=== PATIENT | male | born 1930 | race Caucasian/White ===

== ENCOUNTER 2016-08-12 09:36 | Emergency (ER) | payer MEDICARE, BC ==
[~2016-08-12] VITALS: Ht 172.7 cm; Wt 99.2 kg
[~2016-08-12 09:36] MED LIST: ASPI-558 PO; DOXA4TAB3 PO; FURO20TA6 PO; LOSA50TA17 PO; METO25TA PO; OMEP-29 PO; POTA10CA32 PO; SIMV80TA62 PO; SUCR1TAB29 PO
[2016-08-12 09:39] VITALS: Ht 172.7 cm; Wt 99.2 kg
--- OUTSIDE RECORDS SUMMARY | 2016-08-12 09:40 | XMS REPORT | Continuity of Care Document ---
Author Author [facility] Organization [facility] Address Unknown Phone Unavailable Support Name Relationship Address Phone DIONY GRISSOM Next Of Kin Unknown Unavailable Insurance Providers Payer Name Policy Number Subscriber Name Relationship [facility] [id number] Katy Grissom W 18 Self Medicare [id number] Katy Grissom W 19 Self Problems No Known Problems or Medical conditions. Family History History Response Recorded Date/Time HX of Orthopedic Surgeries Y bilateral hips replaced 11/28/12 9:12am HX Cerebrovascular Accident N 11/28/12 9:12am Hx Seizures N 11/28/12 9:12am Hx Congestive Heart Failure N 11/28/12 9:12am Hx Heart Attack N 11/28/12 9:12am Hx Hypertension N controlled by meds, but when checked is WNL 11/28/12 9:12am Hx Chronic Obstructive Pulmonary Disease (COPD) N 11/28/12 9:12am Hx Diabetes N 11/28/12 9:12am Hx Cancer N 11/28/12 9:12am Hx MRSA N 11/28/12 9:12am HX of Cardiac Surgeries Y STENT,BYPASS X4 11/28/12 9:12am HX of Throat Surgery Y TONSILS 11/28/12 9:12am Cardiac CAD 11/05/12 11:54am Social History History Response Recorded Date/Time Smoking Status Former smoker 11/28/12 9:12am Hx Alcohol Use N 11/28/12 9:12am Has the pt used tobacco in the last 12 months N 11/05/12 6:25pm Allergies, Adverse Reactions, Alerts Allergen Type Severity Reaction Last Updated Penicillins Adverse Reaction Mild BLISTERING 11/05/12 Medications Medication Dose Units Route Sig Qty Days Ferrous Sulfate (Iron) 1 Tab PO DAILY Losartan Potassium (Cozaar) 50 Mg PO DAILY Furosemide (Lasix) 20 Mg PO DAILY Aspirin (Aspir 81) 81 Mg PO DAILY Doxazosin Mesylate 4 Mg PO HS Omeprazole 20 Mg PO DAILY PRN Metoprolol Tartrate (Lopressor) 25 Mg PO BID Potassium Chloride 10 Meq PO DAILY Sucralfate (Carafate) 1 G PO BID Simvastatin 80 Mg PO HS [HCTZ/lisinopril] 1 Tab PO DAILY Immunizations Name Given Type Hx Influenza Vaccination Y fall 2011 H Hx Pneumococcal Vaccination Y states within the last 5 years H Hx Tetanus, Diptheria, Pertussis UNKNOWN H Response Recorded Date/Time Status not known Unknown Results Test Date Result Interp. Ref. Range Alanine Aminotransferase (ALT/SGPT) November 05, 2012 12:10pm 33 U/L N 21-72 Albumin November 05, 2012 12:10pm 4.2 G/DL N 3.5-5.0 Albumin/Globulin Ratio November 05, 2012 12:10pm 1.5 RATIO N 1.1-2.2 Alkaline Phosphatase November 05, 2012 12:10pm 75 U/L N 38-126 Amylase Level November 05, 2012 12:10pm 99 U/L N 30-110 Anion Gap November 06, 2012 5:10am 11 MEQ/L N 5-15 Aspartate Amino Transf (AST/SGOT) November 05, 2012 12:10pm 33 U/L N 17-59 BUN/Creatinine Ratio November 06, 2012 5:10am 16 RATIO N 6-26 Band Neutrophils # November 05, 2012 12:10pm 1.8 T/MM3 - Band Neutrophils % November 05, 2012 12:10pm 9.0 % H 0-6 Basophils # (Auto) November 06, 2012 5:10am 0.0 T/MM3 N 0-0.2 Basophils (%) (Auto) November 06, 2012 5:10am 0.2 % N 0-2 Blood Urea Nitrogen November 06, 2012 5:10am 18.0 MG/DL N 9-20 Calcium Level November 06, 2012 5:10am 8.1 MG/DL DL 8.4-10.2 Calculated Osmolality November 06, 2012 5:10am 273 MOSM/KG N 261-280 Carbon Dioxide Level November 06, 2012 5:10am 28 MEQ/L N 22-30 Chloride Level November 06, 2012 5:10am 102 MEQ/L N 98-107 Creatinine November 06, 2012 5:10am 1.1 MG/DL DN 0.8-1.5 Eosinophils # (Auto) November 06, 2012 5:10am 0.1 T/MM3 N 0-0.5 Eosinophils (%) (Auto) November 06, 2012 5:10am 0.4 % N 0-4 Globulin November 05, 2012 12:10pm 2.8 G/DL N 2.4-3.6 Glucose Level November 06, 2012 5:10am 96 MG/DL N 75-110 Hematocrit November 06, 2012 5:10am 34.3 % DL 41-53 Hemoglobin November 06, 2012 5:10am 10.9 GM/DL DL 13.5-17.5 Lipase November 05, 2012 12:10pm 65 U/L N 23-300 Lymphocytes # (Auto) November 06, 2012 5:10am 1.3 T/MM3 N 1-4.8 Lymphocytes # (Manual) November 05, 2012 12:10pm 1.2 T/MM3 N 1-4.8 Lymphocytes % (Manual) November 05, 2012 12:10pm 6.0 % L 23-45 Lymphocytes (%) (Auto) November 06, 2012 5:10am 9.7 % L 23-45 Mean Corpuscular Hemoglobin November 06, 2012 5:10am 29.0 UUG N 26-34 Mean Corpuscular Hemoglobin Concent November 06, 2012 5:10am 31.8 GM/DL N 31- 37 Mean Corpuscular Volume November 06, 2012 5:10am 91.2 UM3 N 80-100 Mean Platelet Volume November 06, 2012 5:10am 11.3 UM3 N 9.4-12.4 Monocytes # (Auto) November 06, 2012 5:10am 1.1 T/MM3 H 0-0.8 Monocytes # (Manual) November 05, 2012 12:10pm 1.4 T/MM3 H 0-0.8 Monocytes % (Manual) November 05, 2012 12:10pm 7.0 % N 0-9.0 Monocytes (%) (Auto) November 06, 2012 5:10am 8.2 % N 0-9.0 Neutrophils # (Auto) November 06, 2012 5:10am 10.6 T/MM3 H 1.8-7.7 Neutrophils # (Manual) November 05, 2012 12:10pm 15.4 T/MM3 H 1.8-7.7 Neutrophils % (Manual) November 05, 2012 12:10pm 78.0 % H 33-66 Neutrophils (%) (Auto) November 06, 2012 5:10am 81.3 % H 33-66 Platelet Count November 06, 2012 5:10am 140 T/MM3 N 130-400 Potassium Level November 06, 2012 5:10am 3.8 MEQ/L N 3.6-5 RDW Standard Deviation November 06, 2012 5:10am 42.3 FL N 36.9-50.2 Red Blood Count November 06, 2012 5:10am 3.76 M/MM3 L 4.50-5.90 Sodium Level November 06, 2012 5:10am 141 MEQ/L N 134-144 Total Bilirubin November 05, 2012 12:10pm 1.40 MG/DL H 0.20-1.30 Total Protein November 05, 2012 12:10pm 7.0 G/DL N 6.3-8.2 Troponin I November 05, 2012 12:10pm < 0.012 ng/ml 0-0.12 Urine Amorphous Urates November 05, 2012 6:45pm Few - Urine Bacteria November 05, 2012 6:45pm None seen - Urine Bilirubin November 05, 2012 6:45pm Negative - Urine Blood November 05, 2012 6:45pm 2+ H - Urine Collection Type November 05, 2012 6:45pm Cleancatch-midstream - Urine Color November 05, 2012 6:45pm Yellow - Urine Glucose (UA) November 05, 2012 6:45pm Trace H - Urine Ketones November 05, 2012 6:45pm Negative - Urine Leukocyte Esterase November 05, 2012 6:45pm Negative - Urine Nitrite November 05, 2012 6:45pm Negative - Urine Protein November 05, 2012 6:45pm Trace H - Urine RBC November 05, 2012 6:45pm None seen /HPF - Urine Specific [place] November 05, 2012 6:45pm 1.015 - Urine Turbidity November 05, 2012 6:45pm Clear - Urine Urobilinogen November 05, 2012 6:45pm Normal EU/DL - Urine WBC November 05, 2012 6:45pm 1-3 /HPF - Urine Waxy Casts November 05, 2012 6:45pm 0-1 /LPF - Urine pH November 05, 2012 6:45pm 5.0 - White Blood Count November 06, 2012 5:10am 13.1 T/MM3 H 4.5-11.0 Glomerular Filtration Rate Calc November 06, 2012 5:10am 64 - Immature Granulocyte # (Auto) November 06, 2012 5:10am 0.02 T/MM3 N 0.00-0.03 Immature Granulocyte % (Auto) November 06, 2012 5:10am 0.2 % N 0.0-0.5 Venous Blood Lactate November 05, 2012 1:00pm 1.1 MMOL/L N 0.6-2.2 Procalcitonin November 05, 2012 1:00pm 3.69 NG/ML PH - Name: KATY GRISSOM Unit #: [id number]
: 1930 Sex: M
Loc / Svc: MED Admit Date: 11/05/12
Signed Discharge Date: 11/06/12
DISCHARGE SUMMARY Report #: [id number]

BUSTOSCHANTE 11/06/12 1357:
General
Date< br>Date
DATE: 11/06/12
TIME: 13:45
Attending Physician
Myranda Richards DO
Admitting Physician
Myranda Richards DO
Consulting Physician
Admitting Diagnosis
1. Sepsis
2. Leukocytosis with bandemia
3. Nausea/ vomiting
4. CAD
5. Peripheral edema
6. General malaise
7. Obesity BMI 30.5
Discharge Diagnosis
1. Nausea/vomiting probable acute gastroenteritis
2. Leukocytosis -improving
3. CAD
4. Peripheral edema- stable
5. Generalized weakness-resolved
6. Obesity BMI 31.4
Laboratory< br>Laboratory
Laboratory Tests
Test 11/05/12 11/06/12
18:45 05:10

Urine Collection Type Cleancatch-midstream

Urine Color Yellow
< br>Urine Turbidity Clear

Urine pH 5.0

Urine Specific [place] 1.015

Urine Protein Trace

Urine Glucose (UA) Trace

Urine Ketones Negative

Urine Blood 2+

Urine Nitrite Negative

Urine Bilirubin Negative

Urine Urobilinogen Normal EU/DL

Urine Leukocyte Esterase Negative

Urine RBC None seen /HPF

Urine WBC 1-3 /HPF

Urine Amorphous Urates Few

Urine Bacteria None seen

Urine Waxy Casts 0-1 / LPF

White Blood Count 13.1 T/MM3

Red Blood Count 3.76 M/MM3< br>
Hemoglobin 10.9 GM/DL

Hematocrit 34.3 %

Mean Corpuscular Volume 91.2 UM3

Mean Corpuscular Hemoglobin 29.0 UUG
< br>Mean Corpuscular Hemoglobin 31.8 GM/DL
Concent

RDW Standard Deviation 42.3 FL

Platelet Count 140 T/MM3

Mean Platelet Volume 11.3 UM3

Immature Granulocyte % (Auto) 0.2 %

Neutrophils (%) (Auto) 81.3 %

Lymphocytes (%) (Auto) 9.7 %

Monocytes (%) (Auto) 8.2 %

Eosinophils (%) (Auto) 0.4 %

Basophils (%) (Auto) 0.2 %

Immature Granulocyte # (Auto) 0.02 T/MM3

Neutrophils # (Auto) 10.6 T/MM3

Lymphocytes # (Auto) 1.3 T/MM3< br>
Monocytes # (Auto) 1.1 T/MM3

Eosinophils # (Auto) 0.1 T/MM3

Basophils # (Auto) 0.0 T/MM3

Sodium Level 141 MEQ/L

Potassium Level 3.8 MEQ/L

Chloride Level 102 MEQ/L

Carbon Dioxide Level 28 MEQ/L

Anion Gap 11 MEQ/L

Blood Urea Nitrogen 18.0 MG/DL

Creatinine 1.1 MG/DL

Glomerular Filtration Rate 64
Calc

BUN/Creatinine Ratio 16 RATIO

Glucose Level 96 MG/DL

Calculated Osmolality 273 MOSM/KG

Calcium Level 8.1 MG/ DL
Microbiology
Microbiology
Date/Time Procedure Status
Source Growth

11/05/12 13:00 Blood Culture - Preliminary Resulted
Blood NO GROWTH AFTER 24 HOURS

11/05/12 13:00 Blood Culture - Preliminary Resulted
Blood NO GROWTH AFTER 24 HOURS
Radiology
CXR neg.
History of Present Illness
Mr. Grissom is a very pleasant 82 year old gentleman who developed nausea/vomiting 12-14 hours ago
and just felt weak and unwell. He has been suffering from a sore throat he relays and a dry cough.
Prescribed him Lasix, which he did not take today. Denies chest pain, denies soa. Denies
fevers. Was seen in ER and found to have WBC 19.7 with left shift. Procalcitonin 3.69. Urinalysis
not obtained in ER. Chest xray negative for acute findings. Vitals grossly benign with sats 92% on
room air. Complains of feeling overall weak and is tearful during exam[place]
. He was admitted as an inpatient to the hospitalist service due to sepsis.
Hospital Course
Mr. Grissom was admitted initially with an elevated precalcitonin, leukocytosis and profound
weakness. He was not able to provide a urine specimen in the ER and was admitted an inpatient for
sepsis. Started on IV Rocephin and fairly aggressive IV hydration with ns@80cc/hr paying attention
to avoid oversaturation with peripheral edema noted. Patient has been on Lasix recently by his
report as well. After admission and several hours of IV therapy, patient was more conversational
and relayed going out to eat [place] the day prior to developing the symptoms of nausea/vomiting.
He feels that food likely caused his symptoms and subsequent dehydration. IV Protonix was used to
facilitate GI protection. SCDS used for dvt prophylaxis. On 11/06 during morning rounds, Mr. Grissom
verbalizes feeling signficantly better and wanting to go home. Ambulated in halls with nurse from
[address], down to IRU and back around. Gait steady. No dizziness. No weakness.
Home Meds
Reported Medications
Furosemide (Lasix) 20 Mg Tablet 20 Mg PO DAILY
11/05/12
Aspirin (Aspir 81) 81 Mg Tablet.dr 81 Mg PO DAILY
11/05/12
Doxazosin Mesylate 4 Mg Tablet 4 Mg PO HS
11/05/12
[HCTZ/lisinopril] No Conflict Check 1 Tab PO DAILY
11/05/12
Omeprazole 20 Mg Capsule.dr 20 Mg PO DAILY PRN< br> 11/05/12
Metoprolol Tartrate (Lopressor) 25 Mg Tablet 25 Mg PO BID
11/05/12
Potassium Chloride 10 Meq Capsule.sa 10 Meq PO DAILY

Sucralfate (Carafate) 1 G Tablet 1 G PO BID
11/05/12
Simvastatin 80 Mg Tablet 80 Mg PO HS
11/05/12
Discharge Disposition
stable
Documentation Requirements
Documenting Diagnosis
BMI Low or High
BMI Low or High
Assoc. dx for low or high BMI Obesity 30-34.9
FRANCA,MYRANDA DO 11/06/12 2347:
Hospital Course
Pt ok for discharge at this time, good clinical gains noted overnight
Home Meds
Reported Medications
Furosemide (Lasix) 20 Mg Tablet 20 Mg PO DAILY
11/05/12
Aspirin (Aspir 81) 81 Mg Tablet.dr 81 Mg PO DAILY
11/05/12
Doxazosin Mesylate 4 Mg Tablet 4 Mg PO HS
11/05/12
[HCTZ/lisinopril] No Conflict Check 1 Tab PO DAILY
11/05/12
Omeprazole 20 Mg Capsule.dr 20 Mg PO DAILY PRN< br> 11/05/12
Metoprolol Tartrate (Lopressor) 25 Mg Tablet 25 Mg PO BID
11/05/12
Potassium Chloride 10 Meq Capsule.sa 10 Meq PO DAILY

Sucralfate (Carafate) 1 G Tablet 1 G PO BID
11/05/12
Simvastatin 80 Mg Tablet 80 Mg PO HS
11/05/12
Discharge Disposition
stable
CHANTE BUSTOS Nov 06, 2012 13:57
MYRANDA RICHARDS DO Nov 06, 2012 23:47 Procedures Procedure Code Date Blood Culture 11/05/12 Encounters Encounter Location Date/Time Departed Emergency Room [facility] 11/28/12 9:06am Discharged Inpatient [facility] 11/05/12 2:45pm
--- OUTSIDE RECORDS SUMMARY | 2016-08-12 09:41 | XMS REPORT | Continuity of Care Document ---
Author Author [facility] Organization [facility] Address Unknown Phone Unavailable Allergies Active Description Code Type Severity Reaction Onset Reported/Identified Relationship to Patient Clinical Status Yes ampicillin NKMA N/A N/A 07/20/2015 Yes No Known Allergies NKMA N/A N/A 07/20/2015 Medications Problems Date Dx Coded Attending Type Code Diagnosis Diagnosed By 07/27/2015 Felix Ziegler MD Reason H57.8 Other specified disorders of eye and adnexa 07/27/2015 Felix Ziegler MD Final S05.01XA Injury of conjunctiva and corneal abrasion without foreign body, right eye, Procedures Results Encounters ACCT No. Visit Date/Time Discharge Status Pt. Type Provider Facility Loc./Unit Complaint [id number] 07/20/2015 16:26:00 2015 19:55:00 DIS Emergency Felix Ziegler MD [facility] ED R EYE REDNESS
--- OUTSIDE RECORDS SUMMARY | 2016-08-12 09:41 | XMS REPORT | Continuity of Care Document ---
Author Author [facility] Organization [facility] Address Unknown Phone Unavailable Support Name Relationship Address Phone AUGUST VIERA DO Caregiver [address] [place] [address] Unavailable SEPTEMBERDOMITILA DO Caregiver [address] [place] [address] Unavailable PRAVEENAJERMANDIONY Next Of Kin [address] [place] [address] Insurance Providers Guarantor Katy Cristina Address [address] [place] [address] Email [email or web address] Payer Blue [employer] Select Plan 65 Policy Number [id number] Subscriber's Name NoreenKaty givens Relationship 18 Self Group Number [id number] Effective Date 96 Payer Medicare Policy Number [id number] Subscriber's Name Katy Cristina Moises Relationship 18 Self Effective Date 93 Advance Directives Directive Response Recorded Date/Time Advanced Directives Type None 11/25/15 4:37pm Chief Complaint and Reason for Visit Chief Complaint Fall Reason for Visit Laceration of head Problems Past Problems Medical Problem Onset Date Laceration of head Unknown Medications Current Home Medications Medication Dose Units Route Directions Days Qty Instructions Start Date Aspirin (Aspir 81) 81 Mg Tablet. 81 Mg Oral Daily 11/05/12 Doxazosin Mesylate 4 Mg Tablet 4 Mg Oral Bedtime 11/05/12 Furosemide (Lasix) 20 Mg Tablet 20 Mg Oral Daily 11/05/12 Losartan Potassium (Cozaar) 50 Mg Tablet 50 Mg Oral Daily Metoprolol Tartrate (Lopressor) 25 Mg Tablet 25 Mg Oral Twice A Day 11/05/12 Omeprazole (Prilosec) 20 Mg Capsule. 20 Mg Oral Daily as needed 11/05/12 Potassium Chloride 10 Meq Capsule.sa 10 Meq Oral Daily 11/05/12 Simvastatin 80 Mg Tablet 80 Mg Oral Bedtime 11/05/12 Sucralfate (Carafate) 1 G Tablet 1 G Oral Twice A Day 11/05/12 Past Home Medications Medication Directions Ordered Status Hctz/Lisinopril , 1 Tab Oral Daily 11/05/12 Discontinued Social History Social History Problem Response Recorded Date/Time Onset Date Status Hx Alcohol Use No 11/25/2015 4:37pm Not Applicable Not Applicable Has the pt used tobacco in the last 12 months No 11/05/2012 6:25pm Not Applicable Not Applicable Query Response Start Date Stop Date Smoking Status Former smoker Hospital Discharge Instructions No hospital discharge instructions. Plan of Care Discharge Date 11/25/15 5:25pm Disposition 01 DISCHARGED HOME, SELF-CARE Condition at Discharge Improved Instructions/Education Provided How to Care for a Laceration After Repair Closed Head Injury Prescriptions See Medication Section Referrals AUGUST VIERA DO Order Date: 3 Days Address: [address] [id number] Note: Additional Instructions/Education You have head a head trauma with a laceration (cut). There are 5 mehdi on the side of your head. Keep the cut clean and covered. You can cover the cut with vaseline or triple antibiotic ointment to minimize scarring. Follow up with your doctor in 7-10 days to remove the mehdi. Care Plan and Goals Physician Care Plan Problem: Head laceration Goal: Follow up with primary care provider Instructions: Take medications and follow care plan as discussed/written Functional Status No functional status results. Allergies, Adverse Reactions, Alerts Allergen Type Severity Reaction Status Last Updated Penicillin Adverse Reaction Mild BLISTERING Active 11/25/15 Immunizations Immunization Event Date Type Not Given Reason Dose Number Lot Number [employer] Technician VIS Given Tdap 11/25/15 Administered 1 [id number] [employer] 06/30/14 Query Response on File Recorded Date/Time Hx Influenza Vaccination Y fall 201111/28/12 9:12am Hx Pneumococcal Vaccination Y states within the last 5 years 11/28/12 9:12am Hx Tetanus, Diptheria, Pertussis UNKNOWN 11/28/12 9:18am Hx Influenza Vaccination Y fall 201111/28/12 9:12am Hx Tetanus, Diptheria, Pertussis UNKNOWN 11/28/12 9:18am Tdap Vaccine Hx 11/25/15 11/25/15 5:20pm Vital Signs Acute Vital Signs Vital Response Date/Time Temperature (Fahrenheit) 97.5 deg F (96.8 - 99.1) 11/25/2015 5:25pm Temperature (Calculated Celsius) 36.96643 degrees C (36.0 - 37.3) 11/25/2015 5:25pm Pulse Rate (adult) 76 bpm (60 - 100) 11/25/2015 5:25pm Respiratory Rate 14 breaths/min (10 - 20) 11/25/2015 5:25pm O2 Sat by Pulse Oximetry 94 % (90 - 100) 11/25/2015 5:25pm Blood Pressure 147/74 mm Hg 11/25/2015 5:25pm Height (Feet) 5 feet 11/25/2015 4:37pm Height (Inches) 7.00 inches 11/25/2015 4:37pm Weight (Kilograms) 99.400 kg 11/25/2015 4:37pm Body Mass Index (BMI) 34.0 11/25/2015 4:37pm Results No known relevant diagnostic tests, laboratory data and/or discharge summary. Procedures No known history of procedures. Encounters Encounter Location Arrival/Admit Date Discharge/Depart Date Attending Provider Departed Emergency Room [facility] 11/25/15 4:32pm 11/25/15 5: 25pm DOMITILA JUSTICE DO Recent Diagnosis
--- OUTSIDE RECORDS SUMMARY | 2016-08-12 09:41 | XMS REPORT | Referral Summary ---
Author Author [facility] Organization [facility] Address Unknown Phone Unavailable Care Team Providers Care Education Faculty Member Name Role Phone Annette Us Primary Care Physician [phone] Encounter Date(s): 07/20/15 - 07/20/15 [facility] [address] [place] [address] [phone] Discharge Diagnosis: Right corneal abrasion Discharge Disposition: 01-Home or Self Care Attending Physician: Felix Ziegler MD Admitting Physician: Felix Ziegler MD Vital Signs Most recent to 1 oldest [Reference Range]: Temperature Oral 36.6 degC [35.8-37.3 degC] (07/20/15 4:38 PM) Peripheral Pulse 73 bpm Rate [60-100 bpm] (07/20/15 6:11 PM) Respiratory Rate 20 br/min [14-20 br/min] (07/20/15 4:38 PM) Systolic Blood 119 mmHg Pressure [90-140 (07/20/15 6:11 PM) mmHg] Diastolic Blood 72 mmHg Pressure [60-90 (07/20/15 6:11 PM) mmHg] SpO2 97 % (07/20/15 6:11 PM) Problem List No Known Problems Allergies, Adverse Reactions, Alerts Substance Reaction Severity Status ampicillin Active Medications erythromycin 0.5% ophthalmic ointment 1 alena, Eye-Both, QID, SUP/Felix Ziegler MD., X 5 days, # 3.5 g, 0 Refill(s) Start Date: 07/20/15 Stop Date: 07/25/15 Status: Ordered Oscar 5 mg-325 mg oral tablet 1 tabs, Oral, q4hr, as needed for pain, not to exceed 8 tablets/day SUP/Felix Ziegler MD., # 8 tabs, 0 Refill(s) Start Date: 3/15/16 Stop Date: 07/23/15 Status: Ordered Results No data available for this section Immunizations No data available for this section Procedures No data available for this section Social History Social History Type Response Smoking Status Former smoker Assessment and Plan No data available for this section
--- OUTSIDE RECORDS SUMMARY | 2016-08-12 09:41 | XMS REPORT | Continuity of Care Document ---
Author Author [facility] Organization [facility] Address Unknown Phone Unavailable Support Name Relationship Address Phone DIONY GRISSOM Next Of Kin Unknown Unavailable Insurance Providers Payer Name Policy Number Subscriber Name Relationship [facility] [id number] Katy Grissom W 18 Self Medicare [id number] Katy Grissom W 19 Self Problems No [...] 6:45pm None seen /HPF - Urine Specific [place] November 05, 2012 6:45pm 1.015 - Urine [...] PH - Name: KATY GRISSOM Unit #: [id number]
: 1930 Sex: M
Loc / Svc: MED Admit Date: 11/05/12
Signed Discharge Date: 11/06/12
DISCHARGE SUMMARY Report #: [id number]

BUSTOSCHANTE 11/06/12 1357:
General
Date< br>Date
DATE: [...] Turbidity Clear

Urine pH 5.0

Urine Specific [place] 1.015

Urine Protein Trace

Urine Glucose (UA) [...] conversational
and relayed going out to eat [place] the day prior to developing the symptoms [...] Encounters Encounter Location Date/Time Departed Emergency Room [facility] 11/28/12 9:06am Discharged Inpatient [facility] 11/05/12 2:45pm
[2016-08-12 10:03] LABS: BLOOD, URINE 3+ (NEGATIVE); LEUKOCYTE ESTERASE ,URINE NEGATIVE (NEGATIVE); NITRITE,URINE NEGATIVE (NEGATIVE); UROBILINOGEN,URINE 0.2 EU/DL (NORMAL)
[2016-08-12 10:04] LABS: COLOR,URINE BROWN (YELLOW)
--- OUTSIDE RECORDS SUMMARY | 2016-08-12 10:09 | XMS REPORT | Continuity of Care Document ---
Author Author [facility] Organization [facility] Address Unknown Phone Unavailable Allergies Active Description [...] Status Pt. Type Provider Facility Loc./Unit Complaint [id number] 07/20/2015 16:26:00 2015 19:55:00 DIS Emergency Felix Ziegler MD [facility] ED R EYE REDNESS
--- OUTSIDE RECORDS SUMMARY | 2016-08-12 10:09 | XMS REPORT | Continuity of Care Document ---
Author Author [facility] Organization [facility] Address Unknown Phone Unavailable Support Name Relationship Address Phone DIONY GRISSOM Next Of Kin Unknown Unavailable Insurance Providers Payer Name Policy Number Subscriber Name Relationship [facility] [id number] Katy Grissom W 18 Self Medicare [id number] Katy Grissom W 19 Self Problems No [...] 6:45pm None seen /HPF - Urine Specific [place] November 05, 2012 6:45pm 1.015 - Urine [...] PH - Name: KATY GRISSOM Unit #: [id number]
: 1930 Sex: M
Loc / Svc: MED Admit Date: 11/05/12
Signed Discharge Date: 11/06/12
DISCHARGE SUMMARY Report #: [id number]

BUSTOSCHANTE 11/06/12 1357:
General
Date< br>Date
DATE: [...] Turbidity Clear

Urine pH 5.0

Urine Specific [place] 1.015

Urine Protein Trace

Urine Glucose (UA) [...] conversational
and relayed going out to eat [place] the day prior to developing the symptoms [...] Encounters Encounter Location Date/Time Departed Emergency Room [facility] 11/28/12 9:06am Discharged Inpatient [facility] 11/05/12 2:45pm
--- OUTSIDE RECORDS SUMMARY | 2016-08-12 10:10 | XMS REPORT | Continuity of Care Document ---
Author Author [facility] Organization [facility] Address Unknown Phone Unavailable Support Name Relationship Address Phone DIONY GRISSOM Next Of Kin Unknown Unavailable Insurance Providers Payer Name Policy Number Subscriber Name Relationship [facility] [id number] Katy Grissom W 19 Self Medicare [id number] Katy Grissom W 19 Self Problems No [...] 6:45pm None seen /HPF - Urine Specific [place] November 05, 2012 6:45pm 1.015 - Urine [...] PH - Name: KATY GRISSOM Unit #: [id number]
: 1930 Sex: M
Loc / Svc: MED Admit Date: 11/05/12
Signed Discharge Date: 11/06/12
DISCHARGE SUMMARY Report #: [id number]

BUSTOSCHANTE 11/06/12 1357:
General
Date< br>Date
DATE: [...] Turbidity Clear

Urine pH 5.0

Urine Specific [place] 1.015

Urine Protein Trace

Urine Glucose (UA) [...] conversational
and relayed going out to eat [place] the day prior to developing the symptoms [...] Encounters Encounter Location Date/Time Departed Emergency Room [facility] 11/28/12 9:06am Discharged Inpatient [facility] 11/05/12 2:45pm
[2016-08-12 10:16] LABS: RBC,URINE TNTC /HPF (0-3); SQUAMOUS EPITHELIAL CELL,UR 0-5
[2016-08-12 10:17] LABS: BACTERIA,URINE NONE SEEN (NEGATIVE); MUCUS,URINE PRESENT
--- NOTE | 2016-08-12 10:35 | ERPDOC ---
Departure Disposition Decision Date: Aug 12, 2016 Disposition Decision Time: 12:12 Disposition: 01 DISCHARGED HOME, SELF-CARE Impression Impression Impression: Primary Impression: Hematuria Severity: Mild Condition: Improved Seen By: Physician only Referrals: AUGUST VIERA DO (Family) 2 Days Patient Instructions: Hematuria (ED) Problems/Meds/Labs Reviewed?: Yes Medications reviewed and manag: Yes Follow up care ordered?: Yes Mental Status: Alert, Oriented Scripts Ciprofloxacin HCl (Ciprofloxacin HCl) 500 Mg Tablet 500 MG PO BID for 10 Days, #20 TAB 0 Refills Prov: KULWANT MENDOZA 08/12/16 HPI - General Medical General Chief Complaint: Male Urogenital Problems Stated Complaint: BLOOD IN URINE Time Seen by Provider: 09:50 Source: patient Exam Limitations: no limitations HPI - General Medical Initial Comments 86-year-old male presents the emergency department with a chief complaint of noting darker urine. Patient states that he believes that there is blood present in the urine. Patient has a history of hematuria in the past. Patient denies any pain or discomfort. Patient noted onset of dark urine 2 days ago. Symptoms have been persistent in nature since onset. Patient denies any anticoagulation. There are no other complaints or associated symptoms. He does not note any exacerbating or remitting factors. No pain or discomfort is currently present. Occurred At: home Onset: Gradual Allergies: Coded Allergies: Penicillins (Verified Allergy, Mild, BLISTERING, 08/12/16) Past History Past Medical History Metabolic: hypercholesterolemia, hypertension Cardiac: CAD Surgical History General: tonsils Cardiac: cardiac bypass, cardiac cath Joint: hip Family History Family History: Negative Vaccines Hx Influenza Vaccination: Yes (fall 2011) Hx Pneumococcal Vaccination: Yes (states within the last 5 years) Social History Smoking Status: Never smoker Substance Use Type: does not use Alcohol Intake: none Review of Systems Constitutional Constitutional: DENIES: chills, fever Eyes General: DENIES: erythema, exudate Lids/Accessories: DENIES: erythema, swelling Vision: DENIES: acuity, blurring ENMT Ears: DENIES: drainage, erythema Hearing: DENIES: hearing loss Balance: DENIES: ataxia, falling to one side Sinuses: DENIES: congestion, pain Nose: DENIES: nosebleeds, pain Mouth/Throat: DENIES: painful swallowing, sore throat Teeth: DENIES: pain Jaw: DENIES: pain Cardiovascular Cardiac: DENIES: chest pain, dyspnea on exertion Rhythm/Rate: DENIES: irregular beat, palpitations Vascular: DENIES: pedal edema, unilateral swelling Pulmonary Respiratory: DENIES: cough, dyspnea, pleuritic chest pain, sputum GI Upper Abdomen: DENIES: nausea, pain, vomiting Lower Abdomen: DENIES: diarrhea, pain General: hematuria, DENIES: dysuria, frequency Musculoskeletal General: DENIES: joint pain, pain, tenderness Integumentary Skin: DENIES: itching, rash Neurological General: DENIES: headache, numbness, weakness Psychiatric Psychiatric: DENIES: depression, emotional instability, suicidal ideation/ attempt Endocrine Endocrine: DENIES: polydipsia, polyphagia Hematologic/Lymphatic Hematologic/Lymphatic: DENIES: frequent nosebleeds, lymphadenopathy Allergic/Immunological Allergic/Immunoligical: DENIES: allergic reactions, hives Physical Exam General General Nourishment: well nourished, well developed, appears stated age, no acute distress, adult General Body Habitus: well groomed Vitals and Pain First Documented Vital Signs Date Time Temp Pulse Resp B/P Pulse Ox O2 Delivery O2 Flow Rate FiO2 08/12/16 09:39 97.6 70 16 138/69 94 Room Air Weight: Kilograms: 99.200 Height (feet): 5 Height (inches): 8.00 Triage Pain Scale: RN VS reviewed by Provider: Yes Normal Exams: Head: Normocephalic w/o trauma Eyes: Pupils are PERRLA w/ EOMI, No scleral icterus, irritation, or foreign bodies noted ENMT: No facial trauma, nasal exudates, pharyngeal erythema, or exudates are noted Dental: No fractured, loose, or missing teeth noted Neck: Full range of motion, without adenopathy, JVD, bruits or thyromegaly Chest/Resp: Clear all [place], with good airflow, and symmetry bilaterally CV: Regular rate and rhythm, without murmur or gallop, Pulses 2+ all extremities, capillary refill, <2 seconds all ext., no pedal edema noted Abdomen: Bowel sounds positive, soft, non-tender, non-distended, no hepatosplenomegaly, masses or bruits noted Lymphatic: No lymphadenopathy, or lymphedema noted Musculoskeletal: No tenderness, or deformity noted, good range of motion, all extremities Integumentary: No rashes, hives, or bruising noted, hair and nails, without abnormality Neurologic: Patient is alert, and oriented, cranial nerves, motor/sensory/ cerebellar, exams w/o gross deficits, to observation Psychiatric: Patient exhibits, appropriate attention, emotion and affect Abdomen (brief) Comments NO CVAT. Differential Diagnoses Considering: Metabolic, Other (hematuria/kidney stone/UTI) Progress Results/Orders Orders Procedure Category Date Status Time Cbc W/Auto LAB 08/12/16 Complete Diff-Reflex Manual Cmp - Comprehensive LAB 08/12/16 Complete Metabolic INR LAB 08/12/16 Complete PTT LAB 08/12/16 Complete UA, LAB 08/12/16 Complete Dip&Micro(Complete) & 09:59 Ct Renal W/O Contrast CT 08/12/16 Taken 10:58 Lab Results Laboratory Tests Test 08/12/16 09:59 08/12/16 10:15 Urine Collection Type Cleancatch-midstream Urine Color Brown Urine Turbidity Slt cldy Urine pH 5.5 Urine Specific [place] 1.015 Urine Protein 1+ Urine Glucose (UA) Negative Urine Ketones Negative Urine Blood 3+ Urine Nitrite Negative Urine Bilirubin Negative Urine Urobilinogen 0.2EU/DL Urine Leukocyte Esterase Negative Urine RBC Tntc/HPF Urine WBC 5-10/HPF Urine Squamous Epithelial Cells 0-5 Urine Bacteria None seen Urine Mucus Present Urine Culture Indicated Cult not indicated White Blood Count 6.3T/MM3 Red Blood Count 4.16M/MM3 Hemoglobin 12.8GM/DL Hematocrit 39.2% Mean Corpuscular Volume 94.2UM3 Mean Corpuscular Hemoglobin 30.8UUG Mean Corpuscular Hemoglobin Concent 32.7GM/DL RDW Standard Deviation 43.4FL Platelet Count 176T/MM3 Mean Platelet Volume 11.1UM3 Immature Granulocyte % (Auto) 0.2% Neutrophils (%) (Auto) 68.1% Lymphocytes (%) (Auto) 21.4% Monocytes (%) (Auto) 6.6% Eosinophils (%) (Auto) 3.5% Basophils (%) (Auto) 0.2% Absolute Immature Granulocyte (auto 0.01T/MM3 Absolute Neutrophils (auto) 4.3T/MM3 Absolute Lymphocytes (auto) 1.3T/MM3 Absolute Monocytes (auto) 0.4T/MM3 Absolute Eosinophils (auto) 0.2T/MM3 Absolute Basophils (auto) 0.0T/MM3 Prothromb Time International Ratio 1.06 Activated Partial Thromboplast Time 28.6SEC Turbidity < 20 Sodium Level 146MEQ/L Potassium Level 4.1MEQ/L Chloride Level 105MEQ/L Carbon Dioxide Level 27MEQ/L Anion Gap 14MEQ/L Blood Urea Nitrogen 30.0MG/DL Creatinine 1.3MG/DL Glomerular Filtration Rate Calc 52 BUN/Creatinine Ratio 23RATIO Glucose Level 129MG/DL Calculated Osmolality 289MOSM/KG Calcium Level 9.5MG/DL Total Bilirubin 0.80MG/DL Icterus Index < 2 Aspartate Amino Transf (AST/SGOT) 33U/L Alanine Aminotransferase (ALT/SGPT) 32U/L Alkaline Phosphatase 64U/L Total Protein 7.0G/DL Albumin 4.1G/DL Globulin 2.9G/DL Albumin/Globulin Ratio 1.4RATIO Chemistry Specimen Hemolysis < 15 Progress Progress Labs / imaging are discussed in detail with the patient and questions are answered. Patient declines offered IV hydration stating that he will hydrate at home orally. Patient was provided with a prescription for Cipro 500 mg by mouth twice a day 10 days is he had a few white blood cells in his urine along with the hematuria. Patient is not anticoagulated. Patient is discharged home in improved condition. He is to follow up as instructed. Patient is to return to the emergency department if his condition worsens or changes in any manner. Patient is in agreement with the current plan of management. Patient is instructed to follow-up with his primary care physician as directed so that the primary care physician can direct him to urology for further evaluation and treatment of the hematuria. Patient verbalizes agreement and understanding of the instructions. I have offered to obtain urology follow up for the patient but the patient would prefer to use the Urologist that his PCP selects. CT CT : CT: Abd/Pelvis no contrast Interpretation: Normal, Faxed Report KULWANT MENDOZA DO Aug 12, 2016 10:35
--- NOTE | 2016-08-12 10:40 | NUR ---
LAB LAB IN ROOM FOR BLOOD DRAW
[2016-08-12 10:47] LABS: BASOPHILS % (AUTO) 0.2 % (0-2); EOSINOPHILS # (AUTO) 0.2 T/MM3 (0-0.5); EOSINOPHILS % (AUTO) 3.5 % (0-4); HCT - HEMATOCRIT 39.2 % (41-53); HGB - HEMOGLOBIN 12.8 GM/DL (13.5-17.5); IMMATURE GRANULOCYTE # (AUTO) 0.01 T/MM3 (0.00-0.03); IMMATURE GRANULOCYTE % (AUTO) 0.2 % (0.0-0.5); LYMPHOCYTES # (AUTO) 1.3 T/MM3 (1-4.8); LYMPHOCYTES % (AUTO) 21.4 % (23-45); MEAN CORPUSCULAR HGB 30.8 UUG (26-34); MEAN CORPUSCULAR HGB CONC(MCHC 32.7 GM/DL (31-37); MEAN CORPUSCULAR VOLUME 94.2 UM3 (80-100); MEAN PLATELET VOLUME 11.1 UM3 (9.4-12.4); MONOCYTES # (AUTO) 0.4 T/MM3 (0-0.8); MONOCYTES % (AUTO) 6.6 % (0-9.0); NEUTROPHILS #(AUTO)-ABSOLUTE 4.3 T/MM3 (1.8-7.7); NEUTROPHILS % (AUTO) 68.1 % (33-66); RED BLOOD COUNT 4.16 M/MM3 (4.50-5.90); WBC - WHITE BLOOD COUNT 6.3 T/MM3 (4.5-11.0)
[2016-08-12 10:53] LABS: INR 1.06 (0.76-1.04); PROTHROMBIN TIME 11.6 SEC (9.31-12.49); PTT 28.6 SEC (24-36)
[2016-08-12 10:56] LABS: ALBUMIN 4.1 G/DL (3.5-5.0); ALBUMIN/GLOBULIN RATIO 1.4 RATIO (1.1-2.2); ALKALINE PHOSPHATASE 64 U/L (38-126); ALT (SGPT) 32 U/L (21-72); ANION GAP 14 MEQ/L (5-15); AST (SGOT) 33 U/L (17-59); BUN/CREATININE RATIO 23 RATIO (6-26); CALCIUM 9.5 MG/DL (8.4-10.2); CHLORIDE 105 MEQ/L (98-107); CO2 - CARBON DIOXIDE 27 MEQ/L (22-30); CREATININE 1.3 MG/DL (0.8-1.5); GLOMERULAR FILTRATION RATE 52; GLUCOSE 129 MG/DL (75-110); POTASSIUM 4.1 MEQ/L (3.6-5); SODIUM 146 MEQ/L (134-144)
--- NOTE | 2016-08-12 11:10 | NUR ---
RADIOLOGY PT TO RADIOLOGY FOR CT
--- NOTE | 2016-08-12 11:19 | NUR ---
RADIOLOGY PT FROM RADIOLOGY
--- NOTE | 2016-08-12 11:50 | NUR ---
STATUS PT RESTING WITHOUT COMPLAINTS AT THIS TIME
[2016-08-12] MEDS ORDERED: CIPR-280 PO (12:14)
[2016-08-12 12:20] VITALS: BP 119/59; PULSE 64; RESP 18; TEMP 97.6; O2SAT 95
--- NOTE | 2016-08-12 12:20 | NUR ---
DISMISSAL DISMISSAL INSTRUCTIONS WITH RX FOR CIPRO. NO FURTHER QUESTIONS AT THIS TIME. PT LEFT DEPARTMENT [facility] IN NO DISTRESS
--- NOTE | 2016-08-13 09:15 | DI ---
Indication: ITS.REASON: hematuria, renal stone proctol PROCEDURE: CT RENAL W/O CONTRAST: Encounter: Initial Comparison: March 29, 2009 Technique: Axial CT images were performed through the abdomen and pelvis without intravenous contrast. Coronal and sagittal two-dimensional reformats. Automated Exposure Control and Iterative Reconstruction dose reducing techniques were utilized. Findings: Mild senescent changes in the lung bases. Mitral valvular calcifications. Unenhanced contours of the liver are unremarkable. The spleen, pancreas and adrenal glands are within normal limits. Kidneys show no stone disease. No ureteral stones. 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 Visualized bladder and pelvic structures are unremarkable. Sigmoid diverticulosis without evidence of acute diverticulitis. No bowel obstruction. Bone windows show chronic degenerative changes in the spine. Impression: No acute disease process seen. There is a preliminary report by [facility]. .
== END 2016-08-12 12:20 | disposition home or self-care (01) ==
LOC: ED 09:36
DX: R31.9 Hematuria, unspecified (principal); I10 Essential (primary) hypertension
CPT/HCPCS: 36415; 80053; 81001; 85025; 85610; 85730